=== PATIENT | female | born 1990 ===

== ENCOUNTER 2017-07-09 14:52 | Emergency (ER) | payer MEDICAID ==
[2017-07-09 15:04] VITALS: BMI 34.4
[2017-07-09 15:06] VITALS: BP 131/77; PULSE 104; RESP 20; TEMP 98.1; O2SAT 99
--- NOTE | 2017-07-09 15:55 | ED PDOC ---
HPI: General Adult Time Seen by Provider: 07/09/17 15:39 Chief Complaint (Nursing): Cough, Cold, Congestion Chief Complaint (Provider): Cough History Per: Patient History/Exam Limitations: no limitations Onset/Duration Of Symptoms: Days (x4) Current Symptoms Are (Timing): Still Present Additional Complaint(s): Cinthia Chacko is a 27 year old female with no significant past medical history who presents to the ED due to a cough x4 days. Confirms brown sputum, body aches, subjective fever, chills, rhinorrhea, sore throat and headache. Denies diarrhea, vomiting, and abdominal pain. Reports sick contacts at home with viral illness. PMD: [facility] Provider Past Medical History Reviewed: Historical Data, Nursing Documentation, Vital Signs Vital Signs: Last Vital Signs Temp 98.1 F 07/09/17 15:05 Pulse 104 H 07/09/17 15:05 Resp 20 07/09/17 15:05 BP 131/77 07/09/17 15:05 Pulse Ox 99 07/09/17 16:01 - Surgical History Surgical History: - Family History Family History: States: Unknown Family Hx - Immunization History Hx Influenza Vaccination: No - Home Medications Home Medications: Ambulatory Orders Medication Instructions Recorded oxyCODONE/Acetaminophen [Percocet 1 tab PO Q6 PRN #40 tab 02/07/15 5/325 mg Tab] Albuterol HFA [Ventolin HFA 90 2 puff IH Q6 #200 puff 07/09/17 mcg/actuation (8 g)] Azithromycin [Zithromax] 250 mg PO DAILY #6 tab 07/09/17 Dextromethorphan Polistirex 30 mg PO BID #100 marleny.er.[id number] 07/09/17 [Delsym] - Allergies Allergies/Adverse Reactions: Allergies Allergy/AdvReac Type Severity Reaction Status Date / Time No Known Allergies Allergy Verified 02/04/15 10:39 Review of Systems Constitutional: Positive for: Fever (subjective), Chills ENT: Positive for: Nose Discharge, Throat Pain Respiratory: Positive for: Cough, Sputum (brown) Gastrointestinal: Negative for: Vomiting, Abdominal Pain, Diarrhea Musculoskeletal: Positive for: Other (Body Aches) Neurological: Positive for: Headache Physical Exam - Reviewed Nursing Documentation Reviewed: Yes Vital Signs Reviewed: Yes - Physical Exam Appears: Negative for: Well (ill) Head Exam: Positive for: ATRAUMATIC, NORMAL INSPECTION, NORMOCEPHALIC Skin: Positive for: Normal Color, Warm, DRY Eye Exam: Positive for: EOMI, Normal appearance, PERRL ENT: Positive for: Normal ENT Inspection Cardiovascular/Chest: Positive for: Regular Rate, Rhythm. Negative for: Murmur Respiratory: Positive for: Crackles, Wheezing (expiratory) Neurologic/Psych: Positive for: Alert, Oriented. Negative for: Motor/Sensory Deficits - ECG O2 Sat by Pulse Oximetry: 99 (RA) Pulse Ox Interpretation: Normal - Radiology X-Ray: Interpreted by Me X-Ray Interpretation: No Acute Disease Medical Decision Making Medical Decision Making: Time: 15:39 Initial Impression: URI Plan: --X-Ray chest two views --Reevaluation dx: upper resp .infection will be Rx for cough and sinus advised to have pmd f.u Scribe Attestation: Documented by Jt Schmidt, acting as a scribe for Marion Bledsoe PA-C Provider Scribe Attestation: All medical record entries made by the Scribe were at my direction and personally dictated by me. I have reviewed the chart and agree that the record accurately reflects my personal performance of the history, physical exam, medical decision making, and the department course for this patient. I have also personally directed, reviewed, and agree with the discharge instructions and disposition. Disposition - Clinical Impression Clinical Impression: Upper respiratory infection - Patient ED Disposition Is Patient to be Admitted: No Counseled Patient/Family Regarding: Studies Performed, Diagnosis, Need For Followup, Rx Given - Disposition Referrals: [facility] [Outside] Disposition: Routine/Home Disposition Time: 16:03 Condition: STABLE Prescriptions: Albuterol HFA [Ventolin HFA 90 mcg/actuation (8 g)] 2 puff IH Q6 #200 puff Azithromycin [Zithromax] 250 mg PO DAILY #6 tab Dextromethorphan Polistirex [Delsym] 30 mg PO BID #100 marleny.er.12h Instructions: Upper Respiratory Infection (ED) Forms: [facility] ED School/Work Excuse
--- NOTE | 2017-07-09 16:46 | RAD ---
HISTORY: cough COMPARISON: No prior. TECHNIQUE: Chest PA and lateral FINDINGS: LUNGS: No active pulmonary disease. PLEURA: No significant pleural effusion identified. No pneumothorax apparent. CARDIOVASCULAR: Normal. OSSEOUS STRUCTURES: No significant abnormalities. VISUALIZED UPPER ABDOMEN: Normal. OTHER FINDINGS: None. IMPRESSION: No active disease.
== END 2017-07-09 16:38 | disposition home or self-care (01) ==
LOC: H.ER 14:52
DX: J06.9 Acute upper respiratory infection, unspecified (principal)

== ENCOUNTER 2017-10-09 07:06 | Emergency (ER) | payer MEDICAID ==
[2017-10-09 07:12] VITALS: O2SAT 100; BMI 34.9
[2017-10-09] MEDS ORDERED: Sodium Chloride 0.9% 1,000 ML IV STA (07:45)
--- NOTE | 2017-10-09 07:54 | ED PDOC ---
HPI: Abdomen Time Seen by Provider: 10/09/17 07:22 Chief Complaint (Nursing): Abdominal Pain Chief Complaint (Provider): RLQ Pain History Per: Patient History/Exam Limitations: no limitations Onset/Duration Of Symptoms: Days (x 1) Current Symptoms Are (Timing): Still Present Additional Complaint(s): Cinthia is a 27 y/o female who presents to the ED complaining of right lower quadrant pain since yesterday that started in the lower abdomen and gradually focused in the RLQ. Patient states the pain is constant and got worse this morning when she couldn't tolerate it anymore. She has not taken any medications for the pain. She says it is worse when she touches the area, moves , or walks. She has nausea and associated decreased appetite but no vomiting, diarrhea, fever, dysuria, or hematuria. The pain is currently 10/10 severity with radiation to the right lower back. PMD: [facility] Past Medical History Reviewed: Historical Data, Nursing Documentation, Vital Signs Vital Signs: Last Vital Signs Temp 98 F 10/09/17 14:35 Pulse 81 10/09/17 14:35 Resp 18 10/09/17 14:35 BP 132/81 10/09/17 14:35 Pulse Ox 100 10/09/17 14:35 - Medical History PMH: No Chronic Diseases - Surgical History Surgical History: (x 2) Other surgeries: tubal ligation - Family History Family History: States: Unknown Family Hx - Immunization History Hx Influenza Vaccination: No - Home Medications Home Medications: Ambulatory Orders Medication Instructions Recorded Ibuprofen [Motrin] 600 mg PO Q6 PRN #20 tab 10/09/17 oxyCODONE/Acetaminophen [Percocet 1 ea PO Q6 PRN #15 tab 10/09/17 5/325 mg Tab] - Allergies Allergies/Adverse Reactions: Allergies Allergy/AdvReac Type Severity Reaction Status Date / Time No Known Allergies Allergy Verified 10/09/17 07:40 Review of Systems ROS Statement: Except As Marked, All Systems Reviewed And Found Negative Constitutional: Negative for: Fever Gastrointestinal: Positive for: Nausea, Abdominal Pain (RLQ). Negative for: Vomiting, Diarrhea Genitourinary Female: Negative for: Dysuria, Hematuria Musculoskeletal: Positive for: Back Pain (right lower) Physical Exam - Reviewed Nursing Documentation Reviewed: Yes Vital Signs Reviewed: Yes - Physical Exam Appears: Positive for: Well, Non-toxic, Uncomfortable Head Exam: Positive for: ATRAUMATIC, NORMAL INSPECTION, NORMOCEPHALIC Skin: Positive for: Normal Color, Warm, Dry. Negative for: Rash Eye Exam: Positive for: EOMI, Normal appearance, PERRL Neck: Positive for: Normal, Painless ROM, Supple Cardiovascular/Chest: Positive for: Regular Rate, Rhythm. Negative for: Murmur Respiratory: Positive for: Normal Breath Sounds. Negative for: Wheezing, Respiratory Distress Gastrointestinal/Abdominal: Positive for: Soft, Tenderness (significant in RLQ) . Negative for: Distended, Rebound, Hernia Back: Positive for: Vertebral Tenderness (mild in right lower paraspinal). Negative for: L CVA Tenderness, R CVA Tenderness Extremity: Positive for: Normal ROM. Negative for: Pedal Edema, Deformity Neurologic/Psych: Positive for: Alert, Oriented. Negative for: Motor/Sensory Deficits - Laboratory Results Result Diagrams: 10/09/17 07:54 10/09/17 07:54 - ECG O2 Sat by Pulse Oximetry: 100 (RA) Pulse Ox Interpretation: Normal - Progress Re-evaluation Time: 13:50 Condition: Re-examined, Improved Medical Decision Making Medical Decision Making: Time: 7:45 Initial Impression: RLQ Pain; Differentials include but not limited to acute appendicitis, urteral stone, ruptured ovarian cyst, urinary tract infection, less likely lumbar radiculopathy Initial Plan: --CT Abdomen & Pelvis with IV Contrast --BMP --CBC --Morphine IV --Zofran Time: 9:52 CT ABDOMEN & PELVIS FINDINGS: LOWER THORAX: Unremarkable. LIVER: Diffuse hepatic steatosis noted. No gross lesion or ductal dilatation. GALLBLADDER AND BILE DUCTS: Unremarkable. PANCREAS: Unremarkable. No gross lesion or ductal dilatation. SPLEEN: Unremarkable. ADRENALS: Unremarkable. No mass. KIDNEYS AND URETERS: Unremarkable. No hydronephrosis. No solid mass. VASCULATURE: Unremarkable. No aortic aneurysm. BOWEL: The stomach appears collapsed. No no bowel obstruction. Mural thickness compromised by a retained fecal material in the colon the lack of oral contrast material from small mild large-bowel loops. APPENDIX: Normal appendix. PERITONEUM: Trace fluid is seen in the right adnexal compartment which may view secondary to recent right ovarian cyst rupture. A small or adnexal cysts identified measuring 1.3 cm with a apparent collapsing cyst identified in the left adnexal compartment measuring 1.9 cm with trace surrounding fluid related as well. LYMPH NODES: Unremarkable. No enlarged lymph nodes. BLADDER: Unremarkable. REPRODUCTIVE: Unremarkable. BONES: No acute fracture. OTHER FINDINGS: None. IMPRESSION: 1. No CT evidence of appendicitis at this time. 2. Trace bilateral adnexal fluid may be a function of collapsing cysts in both ovaries. 3. Diffuse hepatic steatosis identified. Time: 10:09 --US Pelvis/Transvaginal ordered due to CT findings Time: 13:32 US PELVIS/TRANSVAGINAL FINDINGS: The uterus is anteverted measuring 11.6 x 6.1 x 5.4 cm without focal myometrial lesion appreciable. The endometrium is 1.1 cm and is nonfocal as well. No definite cervix pathology is appreciable. Trace fluid seen the cul-de-sac which is likely physiologic. The right ovary measures 2.1 x 1.9 x 2.5 cm without suspicious cyst or solid lesion related. The left ovary measures 4.6 x 2.8 x 3.8 cm and harbors a 1.5 x 2.8 x 1.2 cm simple cyst, enlarging it slightly. Intra-ovarian arterial blood flow is been identified on spectral Doppler basis with no pattern I would suggest ovarian torsion bilaterally. IMPRESSION: Likely dominant follicle left ovary or other benign cyst. Unremarkable appearing right ovary. Uterus, cervix and endometrium appear unremarkable as well. Clinical Impression: Ovarian Cyst Scribe Attestation: Documented by Kurtis Hook, acting as a scribe for Dr. Alberta Tinajero MD. Provider Scribe Attestation: All medical record entries made by the Scribe were at my direction and personally dictated by me. I have reviewed the chart and agree that the record accurately reflects my personal performance of the history, physical exam, medical decision making, and the department course for this patient. I have also personally directed, reviewed, and agree with the discharge instructions and disposition. Disposition - Clinical Impression Clinical Impression: Ovarian cyst - Patient ED Disposition Is Patient to be Admitted: No Doctor Will See Patient In The: Office Counseled Patient/Family Regarding: Studies Performed, Diagnosis, Need For Followup, Rx Given - Disposition Referrals: Joselo Zhu, MARTITA, [employer] [Family Provider] - Disposition: Routine/Home Disposition Time: 13:59 Condition: GOOD Additional Instructions: Take motrin for pain. Follow up with your PCP in 2-3 days. Prescriptions: Ibuprofen [Motrin] 600 mg PO Q6 PRN #20 tab PRN Reason: Pain, Moderate (4-7) oxyCODONE/Acetaminophen [Percocet 5/325 mg Tab] 1 ea PO Q6 PRN #15 tab PRN Reason: Pain, Severe (8-10) Instructions: Ovarian Cysts
[2017-10-09] MEDS ORDERED: Morphine 4 MG/ML VIAL ONE (07:59)
[2017-10-09 08:04] LABS: BASO % 0.5 % (0.0-2.0); EOS # 0.1 K/uL (0.0-0.7); EOS % 1.5 % (0.0-4.0); HEMOGLOBIN 13.4 g/dL (12.0-16.0); LYMPH # 1.2 K/uL (1.0-4.3); LYMPH % 14.8 % (20.0-40.0); MEAN CELL VOLUME 88.2 fl (81.0-99.0); MEAN CORPUSCULAR HEMOGLOBIN 30.2 pg (27.0-31.0); MEAN CORPUSCULAR HGB CONC 34.2 g/dL (33.0-37.0); MEAN PLATELET VOLUME 8.2 fl (7.2-11.7); MONO # 0.4 K/uL (0.0-0.8); MONO % 5.2 % (0.0-10.0); NEUT # 6.4 K/uL (1.8-7.0); RBC 4.43 Mil/uL (3.80-5.20); RED CELL DISTRIBUTION WIDTH 13.5 % (11.5-14.5); WHITE BLOOD COUNT 8.3 K/uL (4.8-10.8)
[2017-10-09 08:24] LABS: BLOOD UREA NITROGEN 18 mg/dl (7-17); CALCIUM 9.4 mg/dL (8.4-10.2); GFR AFRICAN-AMERICAN > 60; GFR NON-AFRICAN AMERICAN > 60
[2017-10-09] MEDS ORDERED: Sodium Chloride 0.9% 100 ML ONE (08:34)
[2017-10-09] MEDS ORDERED: Iohexol 300 100 ML IJ ONE (08:34)
--- NOTE | 2017-10-09 09:53 | CT ---
PROCEDURE: CT Abdomen and Pelvis with contrast HISTORY: RLQ pain flank pain COMPARISON: None. Following the intravenous administration of iodinated contrast material, a CT examination of the abdomen and pelvis performed from the domes of the diaphragms to the symphysis pubis with reformatted datasets provided not only axial but also sagittal and coronal planes. Oral contrast was not administered as per referring physician request. TECHNIQUE: Contrast dose: Omnipaque 300, 95 cc Radiation dose: Total exam DLP = 893.85 mGy-cm. This CT exam was performed using one or more of the following dose reduction techniques: Automated exposure control, adjustment of the mA and/or kV according to patient size, and/or use of iterative reconstruction technique. FINDINGS: LOWER THORAX: Unremarkable. LIVER: Diffuse hepatic steatosis noted. No gross lesion or ductal dilatation. GALLBLADDER AND BILE DUCTS: Unremarkable. PANCREAS: Unremarkable. No gross lesion or ductal dilatation. SPLEEN: Unremarkable. ADRENALS: Unremarkable. No mass. KIDNEYS AND URETERS: Unremarkable. No hydronephrosis. No solid mass. VASCULATURE: Unremarkable. No aortic aneurysm. BOWEL: The stomach appears collapsed. No no bowel obstruction. Mural thickness compromised by a retained fecal material in the colon the lack of oral contrast material from small mild large-bowel loops. APPENDIX: Normal appendix. PERITONEUM: Trace fluid is seen in the right adnexal compartment which may view secondary to recent right ovarian cyst rupture. A small or adnexal cysts identified measuring 1.3 cm with a apparent collapsing cyst identified in the left adnexal compartment measuring 1.9 cm with trace surrounding fluid related as well. LYMPH NODES: Unremarkable. No enlarged lymph nodes. BLADDER: Unremarkable. REPRODUCTIVE: Unremarkable. BONES: No acute fracture. OTHER FINDINGS: None. IMPRESSION: 1. No CT evidence of appendicitis at this time. 2. Trace bilateral adnexal fluid may be a function of collapsing cysts in both ovaries. 3. Diffuse hepatic steatosis identified.
--- NOTE | 2017-10-09 13:34 | US ---
PROCEDURE: Transabdominal and transvaginal pelvic ultrasound exam HISTORY: RLQ pain pelvic pain COMPARISON: Abdomen pelvis CT examination with contrast 10/09/2017. TECHNIQUE: Transabdominal and transvaginal pelvic ultrasound was performed with longitudinal and transverse images submitted for interpretation. FINDINGS: The uterus is anteverted measuring 11.6 x 6.1 x 5.4 cm without focal myometrial lesion appreciable. The endometrium is 1.1 cm and is nonfocal as well. No definite cervix pathology is appreciable. Trace fluid seen the cul-de-sac which is likely physiologic. The right ovary measures 2.1 x 1.9 x 2.5 cm without suspicious cyst or solid lesion related. The left ovary measures 4.6 x 2.8 x 3.8 cm and harbors a 1.5 x 2.8 x 1.2 cm simple cyst, enlarging it slightly. Intra-ovarian arterial blood flow is been identified on spectral Doppler basis with no pattern I would suggest ovarian torsion bilaterally. IMPRESSION: Likely dominant follicle left ovary or other benign cyst. Unremarkable appearing right ovary. Uterus, cervix and endometrium appear unremarkable as well.
[2017-10-09 14:36] VITALS: BP 132/81; PULSE 81; RESP 18; TEMP 98
== END 2017-10-09 14:37 | disposition home or self-care (01) ==
LOC: H.ER 07:06
DX: N83.209 Unspecified ovarian cyst, unspecified side (principal)
CPT/HCPCS: 74177; 76830; 76856; 80048; 81025; 85025; 96361; 96374; 96375; 99284; J1885; J2270; J2405; J7040; Q9967